=== PATIENT | female | born 1995 | race Caucasian/White ===

== ENCOUNTER 2017-03-10 06:39 | Emergency (ER) | payer BC ==
[~2017-03-10] VITALS: Ht 185.4 cm; Wt 66.6 kg
[~2017-03-10 06:39] MED LIST: ALBU6.7H INH; ALBU8I INH; PRED50 PO; Z.0.BCPILL PO
[2017-03-10 06:43] VITALS: BP 110/56; PULSE 103; RESP 20; TEMP 98.5; O2SAT 98
[2017-03-10] MEDS ORDERED: VENTAER INH (07:08)
[2017-03-10] MEDS ORDERED: BIRTH CONTROL PILLS PO (07:08)
[2017-03-10] MEDS ORDERED: CETI-1 PO (07:08)
[2017-03-10] MEDS ORDERED: ALBUAER3 INH (07:13)
--- NOTE | 2017-03-10 07:13 | PD ---
HPI Chief Complaint: Medication Refill Request Time Seen by Provider: 06:59 Travel History International Travel<30 days: No Contact w/Intl Traveler<30days: No Traveled to known affect area: No History of Present Illness HPI Patient is a 21 year old female, with history of asthma, who comes in because she has run out of albuterol. She says for the past few days she has had increased allergy symptoms with nasal congestion and runny eyes as well as asthma symptoms. She says her roommate got a puppy and this seems to be triggering her asthma/allergies. Currently she is not experiencing shortness of breath, but is worried when she goes home it will come on again. She is not having any pain. PFSH Past Medical History Asthma: Yes Diminished Hearing: No Respiratory: Yes Immunizations Current: Yes Influenza Vaccination: No ?: Not LMP: 02/26/2017 Past Surgical History Surgical History: No Previous Surgery Social History Alcohol Use: Yes (RARE) Tobacco Use: No Substance Use: No Allergies-Medications (Allergen,Severity, Reaction): Coded Allergies: ibuprofen (Verified Allergy, Severe, Anaphylaxis, 03/10/17) tree nut (Verified Allergy, Severe, Anaphylaxis, 03/10/17) Reported Meds & Prescriptions Reported Meds & Active Scripts Active Deltasone 50 Mg Tab (Prednisone) 50 Mg Tab 50 Mg PO DAILY 4 Days Proventil Hfa (Albuterol Sulfate) 6.7 Gm Aero 2 Puff INH Q4HR * SHAKE WELL BEFORE USE * Reported Ventolin Hfa (Albuterol Sulfate) 8 Gm Aero 1 Puff INH Q4H PRN * SHAKE WELL BEFORE USE * Control Pills (Miscellaneous Medication) Tab 1 Tab PO DAILY Review of Systems General / Constitutional: No: Chills Eyes: Positive: Tearing HENT: Positive: Congestion, No: Headaches, Lightheadedness Cardiovascular: No: Chest Pain or Discomfort Respiratory: Positive: Cough Gastrointestinal: No: Nausea, Vomiting Musculoskeletal: No: Myalgias, Edema Skin: No Rash, No Change in Pigmentation Neurologic: No: Weakness, Dizziness Physical Exam Narrative GENERAL: Awake and alert, in no acute distress. SKIN: Focused skin assessment warm/dry. HEAD: Atraumatic. Normocephalic. EYES: Pupils equal and round. No scleral icterus. No injection or drainage. ENT: Mucous membranes pink and moist. CARDIOVASCULAR: Regular rate and rhythm. No murmur appreciated. RESPIRATORY: No accessory muscle use. Clear to auscultation. Breath sounds equal bilaterally. NEUROLOGICAL: Awake and alert. No obvious cranial nerve deficits. Motor grossly within normal limits. Normal speech. PSYCHIATRIC: Appropriate mood and affect; insight and judgment normal. Data Data Last Documented VS Vital Signs Date Time Temp Pulse Resp B/P (MAP) Pulse Ox O2 Delivery O2 Flow Rate FiO2 03/10/17 06:59 20 03/10/17 06:43 98.5 103 110/56 (74) 98 MDM Medical Decision Making Medical Screen Exam Complete: Yes Emergency Medical Condition: Yes Medical Record Reviewed: Yes Differential Diagnosis medication refill vs allergies vs asthma exacerbation Narrative Course Patient is a 21 year old female who has been having increased asthma and allergy symptoms since her roommate got a puppy. Currently her lungs are CTA and she is here because she ran out of her albuterol. Given a prescription for Albuterol. Advised to continue her allergy medication. Advised she may need to talk to her roommate about removing the dog from the home. Advised to follow up with a primary doctor. Advised to return to the ED as needed for any worsening symptoms. Diagnosis Primary Impression: Medication refill Patient Instructions: Asthma (ED), General Instructions, Medicine Refill (ED) Additional Instructions: Follow up with a primary doctor. Return as needed for any worsening symptoms. Scripts Albuterol 8.5 GM Inh (Proair Hfa 8.5 GM Inh) 90 Mcg/Act Aer 2 PUFF INH Q4-6H Y for SHORTNESS OF BREATH, #1 INHALER 0 Refills 108 mcg/actuation Prov: Lily Gonzalez MD 03/10/17 Disposition: 01 DISCHARGE HOME Condition: Stable Lily Gonzalez MD Mar 10, 2017 07:13
== END 2017-03-10 07:36 | disposition home or self-care (01) ==
LOC: PHED 06:39
DX: Z76.0 Encounter for issue of repeat prescription (principal); J45.909 Unspecified asthma, uncomplicated; R05 Cough; R09.81 Nasal congestion; Z88.6 Allergy status to analgesic agent; Z79.899 Other long term (current) drug therapy
CPT/HCPCS: 99283

== ENCOUNTER 2017-03-15 23:33 | Emergency (ER) | payer BC ==
[~2017-03-15 23:33] MED LIST changes: -ALBU6.7H INH; -ALBU8I INH; +ALBUAER3 INH; +BIRTH CONTROL PILLS PO; +CETI-1 PO; -PRED50 PO; +VENTAER INH; -Z.0.BCPILL PO
[2017-03-15 23:40] VITALS: BP 135/64; PULSE 103; RESP 20; TEMP 98.3
[2017-03-15] MEDS ORDERED: methylPREDNISolone SOD SUCC 125 MG/2 ML VIAL IV PUSH ONE (23:45)
[2017-03-15] MEDS ORDERED: SODIUM CHLORIDE 0.9% FLUSH 10 ML FLUSH IVF PRN (23:45)
[2017-03-15] MEDS: RESP: ALBUTEROL 2.5 MG/IPRATROPIUM 0.5 MG NEB (SCH) INH (23:46)
--- NOTE | 2017-03-15 23:47 | PD ---
HPI Chief Complaint: asthma attack, shortness of breath Time Seen by Provider: 23:38 Travel History International Travel<30 days: No Contact w/Intl Traveler<30days: No Traveled to known affect area: No History of Present Illness HPI The patient is a 21-year-old female with a history of asthma who complains of wheezing for the past 2 hours. She has chills and thinks he may have had a fever at home. She does not have a nebulizer machine at home. She denies any chest pain other than the tightness that she usually has with asthma. PFSH Past Medical History Asthma: Yes Diminished Hearing: No Respiratory: Yes Immunizations Current: Yes Social History Alcohol Use: Yes (RARE) Tobacco Use: No Substance Use: No Allergies-Medications (Allergen,Severity, Reaction): Coded Allergies: ibuprofen (Verified Allergy, Severe, Anaphylaxis, 03/15/17) tree nut (Verified Allergy, Severe, Anaphylaxis, 03/15/17) Reported Meds & Prescriptions Reported Meds & Active Scripts Active Proair Hfa 8.5 GM Inh (Albuterol Sulfate) 90 Mcg/Act Aer 2 Puff INH Q4-6H PRN 108 mcg/actuation Reported [ Control Pills] 1 Tab PO HS Zyrtec (Cetirizine HCl) 10 Mg Tablet 10 Mg PO DAILY Ventolin Hfa 18 GM Inh (Albuterol Sulfate) 90 Mcg/Act Aer 2 Puff INH Q4-6H PRN Review of Systems Except as stated in HPI: all other systems reviewed are Neg Physical Exam Narrative GENERAL: The patient is alert, oriented 3 and slight respiratory distress. Oximetry is 98% on room air. The rest of the vital signs are normal. SKIN: Focused skin assessment warm/dry. No skin rash is seen. HEAD: Atraumatic. Normocephalic. EYES: Pupils equal and round. No scleral icterus. No injection or drainage. ENT: No nasal bleeding or discharge. Mucous membranes pink and moist. NECK: Trachea midline. No JVD. CARDIOVASCULAR: Regular rate and rhythm. No murmur appreciated. RESPIRATORY: No accessory muscle use. Bilateral wheezes are heard in all lung jordan. Breath sounds equal bilaterally. GASTROINTESTINAL: Abdomen soft, non-tender, nondistended. Hepatic and splenic margins not palpable. MUSCULOSKELETAL: No obvious deformities. No clubbing. No cyanosis. No edema. NEUROLOGICAL: Awake and alert. No obvious cranial nerve deficits. Motor grossly within normal limits. Normal speech. PSYCHIATRIC: Appropriate mood and affect; insight and judgment normal. Data Data Last Documented VS Vital Signs Date Time Temp Pulse Resp B/P (MAP) Pulse Ox O2 Delivery O2 Flow Rate FiO2 03/16/17 00:36 112 18 98 Room Air 03/15/17 23:40 98.3 Orders Orders Complete Blood Count With Diff (03/15/17 23:38) Basic Metabolic Panel (Bmp) (03/15/17 23:38) Urinalysis - C+S If Indicated (03/15/17 23:38) Iv Access Insert/Monitor (03/15/17 23:38) Ecg Monitoring (03/15/17 23:38) Oximetry (03/15/17 23:38) Oxygen Administration (03/15/17 23:38) Sodium Chloride 0.9% Flush (Ns Flush) (03/15/17 23:45) Methylprednisolone So Succ Inj (Solumedr (03/15/17 23:45) Albuterol-Ipratropium Neb (Duoneb Neb) (03/15/17 23:45) Chest, Pa & Lat (03/15/17 23:42) Ed Urine Pregnancytest Poc (03/16/17 00:36) Urine Culture (03/16/17 00:30) Labs Laboratory Tests Test 03/15/17 23:45 03/16/17 00:30 White Blood Count 13.2 TH/MM3 Red Blood Count 4.39 MIL/MM3 Hemoglobin 13.0 GM/DL Hematocrit 38.7 % Mean Corpuscular Volume 88.1 FL Mean Corpuscular Hemoglobin 29.5 PG Mean Corpuscular Hemoglobin Concent 33.5 % Red Cell Distribution Width 11.6 % Platelet Count 357 TH/MM3 Mean Platelet Volume 7.9 FL Neutrophils (%) (Auto) 61.7 % Lymphocytes (%) (Auto) 24.7 % Monocytes (%) (Auto) 5.3 % Eosinophils (%) (Auto) 7.2 % Basophils (%) (Auto) 1.1 % Neutrophils # (Auto) 8.2 TH/MM3 Lymphocytes # (Auto) 3.3 TH/MM3 Monocytes # (Auto) 0.7 TH/MM3 Eosinophils # (Auto) 0.9 TH/MM3 Basophils # (Auto) 0.1 TH/MM3 CBC Comment DIFF FINAL Differential Comment Blood Urea Nitrogen 11 MG/DL Creatinine 0.90 MG/DL Random Glucose 89 MG/DL Calcium Level 9.1 MG/DL Sodium Level 138 MEQ/L Potassium Level 3.3 MEQ/L Chloride Level 103 MEQ/L Carbon Dioxide Level 28.9 MEQ/L Anion Gap 6 MEQ/L Estimat Glomerular Filtration Rate 78 ML/MIN Urine Color YELLOW Urine Turbidity SLIGHT Urine pH 6.5 Urine Specific [place] 1.007 Urine Protein NEG mg/dL Urine Glucose (UA) NEG mg/dL Urine Ketones NEG mg/dL Urine Occult Blood SMALL Urine Nitrite NEG Urine Bilirubin NEG Urine Leukocyte Esterase MOD Urine RBC 3-5 /hpf Urine WBC 9-14 /hpf Urine Squamous Epithelial Cells > 8 /hpf Urine Bacteria MOD /hpf Microscopic Urinalysis Comment CULTURE INDICATED MDM Medical Decision Making Medical Screen Exam Complete: Yes Emergency Medical Condition: Yes Medical Record Reviewed: Yes Interpretation(s) The urine shows small blood, moderate leukocyte esterase, 9-14 white cells with moderate bacteria and culture is indicated. The PA lateral chest x-ray shows no evidence of acute cardiopulmonary disease. The CBC shows a white count of 13 ,200 but is otherwise normal. The basic metabolic profile shows a GFR of 78, potassium 3.3 but is otherwise normal. Differential Diagnosis Acute asthma, urinary tract infection, electrolyte disorder, anemia, pneumonia, bronchitis Narrative Course The patient has a urinary tract infection. She also has acute asthma. She'll be put on a tapered course of prednisone over 8 days and her bed twice daily for 10 days. It is now 0100 and the patient feels much better and the wheezing has subsided. Diagnosis Primary Impression: Acute asthma exacerbation Additional Impression: Urinary tract infection Additional Instructions: As we discussed, the prednisone is one tablet twice daily for 4 days followed by one tablet once daily for 4 days. Follow-up with your primary care physician next week. Med/Other Pt SpecificInfo: Prescription(s) given Disposition: 01 DISCHARGE HOME Condition: Stable Jozef Bedoya MD Mar 15, 2017 23:47
[2017-03-15 23:53] LABS: AUTOMATED NEUTROPHIL # 8.2 TH/MM3 (1.8-7.7); BASOPHIL # 0.1 TH/MM3 (0-0.2); BASOPHIL % 1.1 % (0.0-2.0); EOSINOPHIL # 0.9 TH/MM3 (0-0.4); EOSINOPHIL % 7.2 % (0.0-4.0); HEMATOCRIT 38.7 % (35.0-46.0); LYMPH % 24.7 % (9.0-44.0); LYMPHOCYTE # 3.3 TH/MM3 (1.0-4.8); MEAN CELL VOLUME 88.1 FL (80.0-100.0); MEAN CORPUSCULAR HEMOGLOBIN 29.5 PG (27.0-34.0); MEAN CORPUSCULAR HGB CONC 33.5 % (32.0-36.0); MEAN PLATELET VOLUME 7.9 FL (7.0-11.0); MONO % 5.3 % (0.0-8.0); MONOCYTE # 0.7 TH/MM3 (0-0.9); NEUT % 61.7 % (16.0-70.0); PLATELET COUNT 357 TH/MM3 (150-450); RED BLOOD COUNT 4.39 MIL/MM3 (4.00-5.30); RED CELL DISTRIBUTION WIDTH 11.6 % (11.6-17.2); WHITE BLOOD COUNT 13.2 TH/MM3 (4.0-11.0)
[2017-03-16 00:03] LABS: BICARBONATE 28.9 MEQ/L (21.0-32.0); CALCIUM 9.1 MG/DL (8.5-10.1)
[2017-03-16 00:07] LABS: CREATININE 0.9 MG/DL (0.50-1.00)
[2017-03-16 00:18] VITALS: BP 137/57; PULSE 112; RESP 20; O2SAT 98
[2017-03-16 00:36] VITALS: PULSE 112; RESP 18; O2SAT 98
[2017-03-16 00:38] LABS: BILIRUBIN, URINE NEG (NEG); BLOOD, URINE SMALL (NEG); GLUCOSE,URINE NEG (NEG); KETONE, URINE NEG (NEG); NITRITE,URINE NEG (NEG); PH, URINE 6.5 (5.0-8.5); URINE LEUKOCYTE ESTERASE MOD (NEG)
--- NOTE | 2017-03-16 00:38 | RADRPT ---
EXAM DATE/TIME: 03/15/2017 23:48 [facility] COMPARISON: No previous studies available for comparison. INDICATIONS : Wheezing. MEDICAL HISTORY : Asthma SURGICAL HISTORY : None. ENCOUNTER: Initial ACUITY: 1 day PAIN SCORE: 0/10 LOCATION: Bilateral chest FINDINGS: PA and lateral views of the chest demonstrate the lungs to be symmetrically aerated without evidence of mass, infiltrate or effusion. The cardiomediastinal contours are unremarkable. Osseous structure s are intact. CONCLUSION: No evidence of acute cardiopulmonary disease. Josiah Wallaec MD on March 16, 2017 at 0:36 Board Certified Radiologist. This report was verified electronically.
[2017-03-16 00:49] LABS: URINE COLOR YELLOW (YELLW/STRAW)
[2017-03-16 00:50] LABS: BACTERIA, URINE MOD /hpf; SQUAMOUS EPITHELIAL CELL URINE > 8 /hpf (0-5)
[2017-03-16] MEDS ORDERED: ALBUAER3 INH (01:13)
[2017-03-16] MEDS ORDERED: PRED50 PO (01:13)
[2017-03-16] MEDS ORDERED: MACR100C2 PO (01:20)
[2017-03-16 01:26] VITALS: BP 138/77
[2017-03-16] MEDS ORDERED: NITROFURANTOIN MONOHYD MACROCR 100 MG CAP PO ONE (01:30)
== END 2017-03-16 01:29 | disposition home or self-care (01) ==
LOC: PHED 23:33
DX: J45.901 Unspecified asthma with (acute) exacerbation (principal); N39.0 Urinary tract infection, site not specified
CPT/HCPCS: 71020; 80048; 81001; 84703; 85025; 87086; 94640; 94664; 96374; 99284; J2930